=== PATIENT | male | born 1980 | race Caucasian/White ===

== ENCOUNTER → 2019-08-11 | Outpatient (CLI) | payer OTHER ==
--- NOTE | 2019-08-11 17:19 | CARDNUC ---
[place] [address] CARDIAC NUCLEAR IMAGING REPORT Name: RISHI CODY II Room: [facility]#: [id number] Admission: 08/11/19 Attend Phys: Franki Alejandre, Discharge: Date of : 82 Date of Service: 08/11/19 1719 Report #: [id number] THIS REPORT FOR: //name// APPROVED REPORT Imaging Protocol: Stress Tc-99m/Rest Tc-99m 2 days Study performed: 08/11/2019 15:06:11 Indication: Chest pain Patient Location: Out-Patient Stress Tech: Dee Dee White Stress Nurse: Lanny Carbajal RN [place] Tech:JACKY ThompsonMT Ht: 6 ft 2 in Wt: 241 lbs BSA: 2.35 m2 HR: 91 bpm BP: 121/84 mmHg BMI: 30.93 Rhythm: Atrial Fibrillation Medical History Medical History: Atrial Fibrillation Resting Data Rest SPECT myocardial perfusion imaging was performed in supine position 30 minutes following the intravenous injection of 10.7 mCi of Tc-99m Sestamibi. Time of rest injection: 13:05 The images were gated to evaluate regional wall motion and calculate left ventricular ejection fraction. Administration Route: IV Administration Site: Right AC Pharmacologic Stress Pharmacologic stress test was performed by injecting Regadenoson 0.4 mg IV push over 10-15 seconds immediately followed by the intravenous injection of 33.8 mCi of Tc-99m Sestamibi. Time of stress injection: 3:05 Administration Route: IV Administration Site: Right AC Heart Rate at time of stress injection: 143 bpm. Gated Stress SPECT was performed 45 minutes after stress injection. The images were gated to evaluate regional wall motion and calculate left ventricular ejection fraction. [place] [address] CARDIAC NUCLEAR IMAGING REPORT Name: RISHI CODY II [id number] Admission: 08/11/19 Attend Phys: Franki Alejandre, Discharge: Date of : 82 Date of Service: 08/11/19 1719 Report #: [id number] Stress Test Details HR Max Heart Rate (APMHR): 182 bpm Target HR (85% APMHR): 154 bpm BP ECG Resting ECG: Atrial Fibrillation Stress ECG: Atrial Fibrillation ST Change: None Arrhythmia: None Recovery ECG: Atrial Fibrillation Recovery ST Change: None Recovery Arrhythmia: None Clinical The patient tolerated Lexiscan infusion without significant cardiac symptoms. Stress ECG Conclusion The baseline EKG shows atrial fibrillation without significant ST segment abnormality. EKGs obtained during and post Lexiscan infusion show atrial fibrillation with no significant ST segment changes when compared to baseline. Study Quality Study: Good Artifact: No artifact Study Data At rest, the left ventricular ejection fraction was 42%.. Post stress, the left ventricular ejection was 48%.. TID = 0.96. Perfusion Normal left ventricular perfusion. Wall Motion There is global hypokinesis with mild left ventricular systolic dysfunction. Nuclear Conclusion ECG Findings: negative for ischemia Clinical Findings: negative for ischemia Nuclear Findings: [place] [address] CARDIAC NUCLEAR IMAGING REPORT Name: RISHI CODY II Room: [facility]#: [id number] Admission: 08/11/19 Attend Phys: Franki Alejandre, Discharge: Date of : 82 Date of Service: 08/11/191718 Report #: [id number] Exercise Capacity: not assessed Left Ventricular Function: mildly decreased Perfusion images show no defect to suggest infarct or ischemia. There is global hypokinesis on gated studies. Left ventricular systolic function is mildly decreased. This is not a high risk study. <Conclusion> The baseline EKG shows atrial fibrillation without significant ST segment abnormality. EKGs obtained during and post Lexiscan infusion show atrial fibrillation with no significant ST segment changes when compared to baseline. <ELECTRONICALLY SIGNED> By: Patrick Summers MD, [facility] 08/11/191718 18 1719 Patrick Summers MD, FACC /INF
== END ==
LOC: M.NUC 12:37
DX: I48.2 Chronic atrial fibrillation (principal); I42.0 Dilated cardiomyopathy; R07.89 Other chest pain; I51.3 Intracardiac thrombosis, not elsewhere classified